=== PATIENT | female | born 1950 | race Two or more races ===

== ENCOUNTER 2018-07-10 07:00 | Day surgery (SDC) | payer OTHER ==
[2018-07-07 16:53] VITALS: BMI 24.9
[2018-07-10] MEDS ORDERED: ceFAZolin SODIUM 1 GM VIAL IVPB ONE (09:54)
[2018-07-10] MEDS ORDERED: ONDANSETRON 4 MG/2 ML VIAL IVPB PRN (10:42)
[2018-07-10] MEDS ORDERED: morphine SULFATE 4 MG/ML VIAL IVPUSH PRN (10:43)
--- NOTE | 2018-07-10 10:44 | OP ---
Operative Note - Note: Operative Date: 07/10/18 Pre-Operative Diagnosis: left breast CA Operation: left Total mastectomy Post-Operative Diagnosis: Same as Pre-op Surgeon: Renuka Lopes Photoengraver Apprentice: Crystal Segal Anesthesiologist/STOVE POLISHER: Valarie Carmona Anesthesia: General Specimens Removed: left breast Estimated Blood Loss (mls): 100 Drains & Tubes with Location: lyle drains x2 left chest wall Fluid Volume Replaced (mls): 800 Operative Report Dictated: Yes
[2018-07-10] MEDS ORDERED: ONDANSETRON 4 MG/2 ML VIAL IVPUSH PRN (10:45)
[2018-07-10] MEDS ORDERED: oxyCODONE HCL 5 MG TABLET PO PRN ×3 (10:45→12:06)
--- NOTE | 2018-07-10 10:45 | SURG ---
Surgery Director Packaging Note Director Packaging: Crystal Segal PA-C Date of Service: 07/10/18 Diagnosis: left breast CA Procedure: left total mastectomy I was present for the entirety of the operative procedure. For further detail, please refer to operative report. Visit type - Case Type Case Type: Scheduled - Emergency Emergency Visit: No - New patient This patient is new to me today: Yes Date on this admission: 07/10/18
[2018-07-10] MEDS ORDERED: ACETAMINOPHEN 325 MG TABLET (FP) PO PRN ×2 (12:05→12:06)
[2018-07-10] MEDS ORDERED: ACETAMINOPHEN 325 MG TABLET (FP) PO ONE (13:15)
[2018-07-10] MEDS ORDERED: DEXTROSE 5%-WATER - 50 ML IVPB ONE (17:55)
[2018-07-10] MEDS ORDERED: ceFAZolin SODIUM 1 GM VIAL ONE (17:55)
[2018-07-10] MEDS: LACTATED RINGERS SOLUTION 1,000 ML IV SCH (18:05)
[2018-07-10] MEDS: CEFAZOLIN 1 GM in DEXTROSE 5%-WATER - 50 ML IVPB SCH (18:06)
--- NOTE | 2018-07-10 21:28 | OP ---
DATE OF OPERATION: 07/10/2018 PREOPERATIVE DIAGNOSIS: Left breast cancer. POSTOPERATIVE DIAGNOSIS: Left breast cancer. PROCEDURE: Left total mastectomy. SURGEON: Renuka Lopes MD COPPER PLATE PRINTER: BRIANNA Dickens ANESTHESIA: General. ESTIMATED BLOOD LOSS: 100 mL DRAINS: DEBBIE x2. COMPLICATIONS: None. This was a sterile procedure. INDICATIONS: Patient had a left lumpectomy and sentinel node biopsy. On lumpectomy, she had multiple positive margins as well as a close deep margin. She had 2 sentinel lymph nodes that were negative. One had a few cells in them but considered negative. We discussed the option of re-excision lumpectomy versus mastectomy, and after discussion, decision was to go ahead with a mastectomy. The procedure was discussed with her and all of her questions answered. PROCEDURE IN DETAIL: Patient was brought to [facility] in [place] and taken into the operating room, where after the induction of general anesthesia and IV antibiotics, the left breast and axilla were prepped and draped in the usual sterile fashion. An ellipse of skin was taken to include the nipple-areolar complex, and the superior, inferior, medial, and lateral flaps were raised. The breast was reflected off the pectoralis muscle, tagged with a stitch at the lateral edge. I did take the entire cavity of the prior lumpectomy with me as my deep margin was less than 1 mm. The specimen was sent to Pathology for permanent section. Hemostasis assured with electrocautery. Through 2 separate stab wounds, 2 DEBBIE drains were inserted into the mastectomy flap and secured to the skin with a nylon stitch. The incision was then closed with skin rodrigo and a sterile dressing of Vaseline gauze, Telfa, 4 x 4's and ABD as well as a mammary binder was applied. She tolerated the procedure well, was extubated on the operating room table, taken to recovery in good condition. Ross [id number]
[2018-07-11] MEDS ORDERED: DEXTROSE 5%-WATER - 50 ML IVPB ONE ×2 (02:34→09:11)
[2018-07-11] MEDS ORDERED: ceFAZolin SODIUM 1 GM VIAL ONE ×2 (02:34→09:11)
[2018-07-11] MEDS: CEFAZOLIN 1 GM in DEXTROSE 5%-WATER - 50 ML IVPB SCH ×2 (02:36→09:17)
[2018-07-11] MEDS: LACTATED RINGERS SOLUTION 1,000 ML IV SCH (04:54)
[2018-07-11 05:42] VITALS: BP 117/56; PULSE 66; TEMP 98.6
--- NOTE | 2018-07-11 07:50 | PN ---
Progress Note (short form) - Note Progress Note: POD#1 Pt without any complaints of nausea/emesis. Having some pain. Oob and ambulating. Assisted the patient to the restroom and oiding without difficulty. Vital Signs Period Temp Pulse Resp BP Sys/Gilliam Pulse Ox Last 24 Hr 97.6 F-98.6 F 66-94 12-20 97-117/52-68 94-100 DEBBIE: 12 and 10ml serosangrenous GEN: A&0x3, NAD Left mastectomy site: clean and dry, with abd dressing and pink bra LE: no calf tendnerss or swelling noted b/l A/P: s/p Left total mastectomy, POD#1 Plan for discharge to home today after VNS obtained Continue diet as tolerated Pain medications as needed D/w Dr. Castro
--- NOTE | 2018-07-11 08:29 | PN ---
Progress Note (short form) - Note Progress Note: Anesthesia Post op Pt seen and examined S:Alert and awake O: Vital Signs Temperature 98.6 F 07/11/18 05:30 Pulse Rate 66 07/11/18 05:30 Respiratory Rate 18 07/10/18 19:00 Blood Pressure 117/56 07/11/18 05:30 O2 Sat by Pulse Oximetry (%) 98 07/10/18 20:20 A/P s/p left mastectomy Doing well post op Continue current care Narendra King MD
--- NOTE | 2018-07-14 13:32 | PATH ---
Surgical Pathology Report Patient Name: LETY NIELSEN [facility]. Rec. #: [id number] /Age/Gender: 1950 (Age: 68) / F Account: [id number] Location: AMBULATORY SURG Taken: 07/10/2018 Received: 07/10/2018 Reported: 07/14/2018 Physicians: Renuka Lopes M.D. Specimen(s) Received LEFT BREAST, MASTECTOMY Clinical History Left breast cancer Final Diagnosis BREAST, LEFT, MASTECTOMY: RESIDUAL INVASIVE LOBULAR CARCINOMA. INVASIVE CARCINOMA MEASURES 2 MM IN GREATEST MICROSCOPIC DIMENSION, PRESENT AT LOWER OUTER QUADRANT (LOQ), ADJACENT PREVIOUS BIOPSY. FOCAL DUCTAL CARCINOMA IN SITU, UPPER INNER QUDARANT (UIQ). LOBULAR CARCINOMA IN SITU (LCIS), CLASSICAL TYPE. NO LYMPHOVASCULAR INVASION IDENTIFIED. SURGICAL MARGINS ARE UNINVOLVED BY CARCINOMA; WIDELY FREE FROM CARCINOMA. SKIN AND NIPPLE ARE UNINVOLVED BY CARCINOMA. REMAINDER OF BREAST TISSUE SHOWS STROMAL FIBROSIS, APOCRINE METAPLASIA, USUAL AND FOCAL ATYPICAL DUCTAL HYPERPLASIA, SCLEROSING ADENOSIS, AND COLUMNAR CELL CHANGE. Comment: Immunohistochemical stains performed and interpreted at [facility] for E-cadherin is positive in the DCIS. CK7 is utilized to evaluate this case. Findings discussed with Dr. Lopes. Electronically Signed Lety Barragan M.D. Gross Description Received in formalin, labeled "left breast mastectomy," is an 830 gram, 19.0 x 15.0 x 6.5 cm. left mastectomy specimen with a suture marking the lateral edge, per the surgeon. The anterior surface displays a 19.0 x 7.0 cm brown, elliptical portion of skin with a central 1.0 cm in diameter inverted nipple. There is a defect in the deep margin associated with a previous biopsy cavity at the lateral aspect of the specimen. The deep margin is inked black and the anterior soft tissue margin is inked blue. The specimen is serially sectioned from medial to lateral. Sectioning reveals an 8 cm in greatest dimension previous biopsy cavity surrounded by abundant dense, white, firm fibrosis and fat necrosis. The cavity is in the lower outer quadrant (LOQ). There is abundant firm fibrous tissue at the medial aspect of the cavity. The remaining breast parenchyma displays abundant dense, white, focally firm fibrous tissue. Apartment Leasing Specialist sections are submitted in 21 cassettes as follows: 1-serially sectioned nipple; 2-subareolar shave; 3-9-LOQ previous biopsy cavity with surrounding fibrosis and fat necrosis; 38-82-ddkkfrwyyr firm fibrous tissue at medial aspect of previous biopsy cavity; 12-13-upper outer quadrant; 14-15-upper inner quadrant; 16-17-lower inner quadrant; 18-19- deep margin from area of previous biopsy cavity; 20-skin; 21-anterior soft tissue margin. Total formalin fixation time: Approximately 28 hours 07/11/201807/11/2018
== END 2018-07-11 14:40 | disposition home or self-care (01) ==
LOC: JASU-SURG 07:00 → JASUSAT 07:00 → J6S 17:00 → JASUSAT 07-11 14:40
PROVIDERS: ATTEND Surgery
PROC: 0HTU0ZZ Resection of Left Breast, Open Approach (ICD-10-PCS; principal; 2018-07-10 09:00)
DX: C50.912 Malignant neoplasm of unspecified site of left female breast (principal)
CPT/HCPCS: 88307-TC; 88341-TC; 88342-TC; 94010; 94760